=== PATIENT | male | born 1960 | race Caucasian/White ===

== ENCOUNTER → 2023-10-24 | Outpatient (CLI) | payer MEDICARE ==
--- NOTE | 2023-10-24 17:47 | CA ---
Exercise Stress Test Report Name: Mane Nascimento Exam Date: 10/24/2023 08:50 Exam Location: [facility] Ht (in): 66 Wt (lb): 137 BSA: 1.70 Ordering Phys: Catalino Griffin MD Referring Phys: Catalino Griffin MD Technologist: CORTNEY CAUSEY Age: 62 Gender: M : 1960 Procedure CPT: Indications: R06.02 SOB Z84.29 FAM HX MO ICD-10 Codes: Patient History: DIFFICULTY IN BREATHING, PALPITATIONS, FAMILY HX OF HEART DISEASE, CURRENT SMOKER Medications: NONE Meds past 24 hrs: Pretest Chest Pain: STRESS TEST Semaj Protocol Exercise Duration (min:sec): 09:[address] Depressions (mm): Angina Score: Hubbard Score: Resting HR (bpm): 84 Peak HR (bpm): 134 Resting BP (mmHg): 147 / 87 Peak BP (mmHg): 178 / 67 MPHR: 157 Target HR: 133 % MPHR: 85 METS: 9.7 Total Dose: Peak Dose: Atropine: Double Product: 33023 BP Response: Stress Termination: MAX EXERTION/TARGET HR Stress Symptoms: NO SYMPTOMS Stress Summary: ECG ANALYSIS Resting ECG: Stress ECG: CONCLUSIONS Excellent exercise tolerance Normal electrocardiogram stress testing Dr. Jelani Bush MD (Electronically Signed) Final Date: 24 October 2023 17:46
== END | disposition home or self-care (01) ==
LOC: RADNMMAIN 08:20
PROVIDERS: ATTEND Family Medicine
DX: R06.02 Shortness of breath (principal); R06.2 Wheezing
CPT/HCPCS: 93017; 93225; 93226

== ENCOUNTER → 2023-11-21 | Outpatient (CLI) | payer MEDICARE ==
--- NOTE | 2023-11-21 13:16 | CTL ---
EXAMINATION TYPE: CT Low Dose Lung DATE OF EXAM ORDERED: 11/21/2023 HISTORY: . Low Dose CT Lung Screening CT DLP: [address] CTDI: 1.76 mGy IV CONTRAST USED: None. SCREENING VISIT: First visit COMPARISON: None. TECHNIQUE: Low dose computed tomography scan was performed through the chest at 1 millimeter thick se ctions and reconstructed images in the coronal plane at [address] DIAGNOSTIC QUALITY: Satisfactory FINDINGS: LUNG NODULES: Not presentLeft lung: no nodules identified.Right lung: no nodules identified. LUNGS: COPD: Severity: Mild Fibrosis: Severity:None Lymph nodes: None Other findings: None RIGHT PLEURAL SPACE: Effusion: None Calcification: None Thickening: None Pneumothorax: None LEFT PLEURAL SPACE: Effusion: None Calcification: None Thickening: None Pneumothorax: None HEART: Heart Size: Mildly enlarged Coronary calcification: Mild Pericardial effusion: None OTHER FINDINGS: Upper abdomen: No significant abnormality Bony thorax: Degenerative changes Supraclavicular region: No significant abnormalityOther: No significant abnormalityI IMPRESSION: No pulmonary nodularity greater than [address] CHEST RECOMMENDATION: Follow-up screening in one year CT LUNG RAD: LUNG RAD CATEGORY 1 negative
== END | disposition home or self-care (01) ==
LOC: RADCTMAIN 08:08
PROVIDERS: ATTEND Family Medicine
DX: Z12.2 Encounter for screening for malignant neoplasm of respiratory organs (principal); F17.210 Nicotine dependence, cigarettes, uncomplicated
CPT/HCPCS: 71271

== ENCOUNTER → 2024-02-16 | Day surgery (SDC) | payer MEDICARE ==
[~2024-02-16] MED LIST: ALPRAZolam 0.25 MG TAB PO PRN; ALPRAZolam 0.5 MG TAB PO PRN; ASPIRIN 325 MG TAB PO ONE; HEPARIN SODIUM 1,000 UN/ML (10ML VL) ONE; HEPARIN SODIUM,PORCINE 30 ML 30 ML ONE; LIDOCAINE 1% INJ 10MG/ML (20 ML MDV) ONE; NITROGLYCERIN SL TABS 0.4 MG TAB SUBLINGUAL PRN; RX INFO: IV CONTRAST WAS GIVEN 1 EACH MISC MISCELLANE PRN; VERAPAMIL 2.5 MG/ML 2 ML AMP ONE; fentaNYL (PF) 50 MCG/ML 2 ML AMP ONE
[2024-02-16] MEDS: IV FLUID CONTINUATION 1,000 ML IV ONE (07:30)
[2024-02-16] MEDS: SODIUM CHLORIDE 0.9% 1,000 ML in EMPTY BAG 1 BAG IV SCH (07:30)
[2024-02-16 07:44] VITALS: TEMP 98.1
[2024-02-16 07:53] LABS: Basophils # (A) 0.1 k/uL (0-0.2); Basophils % (A) 1 %; Eosinophils # (A) 0.2 k/uL (0-0.7); Eosinophils % (A) 2 %; HCT 43.8 % (39.0-53.0); HGB 13.3 gm/dL (13.0-17.5); Lymphocytes # (A) 2.4 k/uL (1.0-4.8); Lymphocytes % (A) 27 %; MCH 30.5 pg (25.0-35.0); MCHC 30.4 g/dL (31.0-37.0); MCV 100.4 fL (80.0-100.0); Macrocytosis Slight; Mean Platelet Volume 7.9; Monocytes # (A) 0.6 k/uL (0-1.0); Monocytes % (A) 7 %; Neutrophils # (A) 5.4 k/uL (1.3-7.7); Neutrophils % (A) 60 %; Platelet Count 318 k/uL (150-450); RBC 4.37 m/uL (4.30-5.90); RDW 14.3 % (11.5-15.5)
[2024-02-16 08:08] LABS: African American GFR (CKD) >90 (>60 ml/min/1.73 sqM); Anion Gap 6 mmol/L; Blood Urea Nitrogen 22 mg/dL (9-20); Calcium 9.4 mg/dL (8.4-10.2); Carbon Dioxide 25 mmol/L (22-30); Chloride 107 mmol/L (98-107); Glucose 97 mg/dL (74-99); Non-African American GFR(CKD) >90 (>60 ml/min/1.73 sqM); Potassium 5.1 mmol/L (3.5-5.1); Sodium 138 mmol/L (137-145)
[2024-02-16] MEDS: fentaNYL (PF) 50 MCG/ML 2 ML AMP IVP ONE (09:20)
[2024-02-16] MEDS: MIDAZOLAM 2 MG/2 ML VIAL IVP ONE (09:20)
[2024-02-16] MEDS: LIDOCAINE 1% INJ 10MG/ML (20 ML MDV) SQ ONE (09:21)
[2024-02-16] MEDS: VERAPAMIL 2.5 MG/ML 4 ML VIAL INTRAARTER ONE (09:23)
[2024-02-16] MEDS: HEPARIN SODIUM 1,000 UN/ML (10ML VL) IV ONE (09:25)
[2024-02-16] MEDS: IOPAMIDOL-370 100ML BTL INJ ONE (09:33)
--- NOTE | 2024-02-16 10:06 | LTR ---
Dear Kaylee: I performed cardiac catheterization on Mane Nascimento. A detailed catheterization note is enclosed for your records. In brief, cardiac catheterization was done because of cardiomyopathy noted on a stress test and I am happy to report you that patient does not need coronary revascularization at this time. He has mild nonobstructive disease and his management is going to be in the form of risk factor modification and optimal medical therapy. Thank you for allowing me to participate in the care of this pleasant gentleman. DEMETRIUS / LEESA: [id number] /
--- NOTE | 2024-02-16 10:06 | CC ---
CARDIAC CATHETERIZATION REPORT INDICATION: Abnormal stress test showing ischemic cardiomyopathy. PROCEDURE NOTE: After obtaining informed consent, left heart catheterization and coronary angiogram were performed via the right radial artery using standard Homer catheters. The patient tolerated the procedure well without any obvious immediate complications. A TR band was used for hemostasis. The patient received moderate conscious sedation. Total sedation time was 17 minutes. Right radial artery access was obtained using Seldinger technique. A 6-Vietnamese sheath was placed. Catheters and wires were floated into the ascending aorta under fluoroscopic guidance. FINDINGS: 1. Hemodynamics: Left ventricular end-diastolic pressure is 8 to 10 mm. There is no significant gradient across the aortic valve. 2. Left ventriculogram: Left ventriculogram is not performed. 3. Angiographic data: a.Right coronary artery: Right coronary artery is a large dominant vessel that appears calcified and shows mild to moderate nonobstructive plaque in its midportion. b.Left main coronary artery appears mildly calcified but is free of significant stenosis, divides into left anterior descending coronary artery and circumflex coronary artery. Circumflex coronary artery shows mild disease involving the AV groove circ. LAD shows mild nonobstructive disease. CONCLUSION: Mild nonobstructive coronary artery disease involving the left coronary artery and mild to moderate disease involving mid RCA. PLAN: I reviewed angiographic data with the patient and told him that his management is going to be in the form of risk factor modification and optimal medical therapy. Blood pressure tolerating, I will add an CRYSTAL inhibitor and a beta mariza down the road. At the moment, he is on aspirin and a statin. MMODL / IJN: [id number] /
[2024-02-16 16:17] VITALS: BP 115/60; PULSE 70; RESP 16
== END ==
LOC: CATHCVL 07:07
PROVIDERS: ATTEND Internal Medicine Cardiovascular Disease
DX: I25.5 Ischemic cardiomyopathy (principal); I25.10 Atherosclerotic heart disease of native coronary artery without angina pectoris
CPT/HCPCS: 93458; 80048; 85025; C1769; J2250; J2001; J3010; J1644; Q9967

== ENCOUNTER → 2024-11-19 | Outpatient (CLI) | payer MEDICARE ==
--- NOTE | 2024-11-19 12:03 | CT ---
EXAMINATION TYPE: CT chest wo con DATE OF EXAM: 11/19/2024 11:14 AM COMPARISON: CT chest 11/21/2023 CLINICAL INDICATION: Male, 64 years old with history of R91.8 abnormal exam of lung field; R22.2; PHH , HX OF HTN, SMOKER X 50 YEARS, PT SMOKES 1 PK/DAY TECHNIQUE: Multiple axial images were obtained through the chest. Sagittal and coronal reformats were created for review. MIP was performed on a separate workstation. Contrast used: mL of (None if empty) Oral contrast used: (None if empty) CT DLP: 358 mGycm, Automated exposure control for dose reduction was used. FINDINGS: LUNGS/ PLEURA: No focal consolidation, pneumothorax or pleural effusion. Stable left lower lobe later al 3 mm nodule series 3 image 47. Stable left lower lobe 3 mm nodule image 38. Stable medial intrafis sural lymph node image 19. Mild centrilobular emphysema changes. AIRWAY: Patent and unremarkable. HEART: Size within normal limits. Mild coronary artery calcifications present. MEDIASTINUM: No gross evidence of adenopathy. VASCULATURE: No aortic aneurysm. MUSCULOSKELETAL: Mild disc degeneration changes are present throughout the thoracolumbar spine second palmira to osteophyte formation and facet joint arthropathy. SOFT TISSUES/LYMPH NODES: Unremarkable. LOWER NECK: No significant findings. UPPER ABDOMEN: Bilateral indeterminate probable simple appearing renal cysts. On the left measuring u p to 27 mm on the right measuring up to 9 mm. No follow-up for these lesions. IMPRESSION: No evidence for acute process. No new or enlarging pulmonary nodules. Stable sub-5 mm nodules. Continued yearly low-dose lung cancer screening. Mild emphysema. Follow up recommendations for incidental pulmonary nodules, if there are any, are per Fleischner?s A [employer] or [employer] [employer]. https://radiopaedia.org/articles/lqmplyupuh-msocszf-[email or web address]-qhnggu-[email or web address]-[email or web address]?lang=us [facility], , 11/19/2024 12:01 PM
== END | disposition home or self-care (01) ==
LOC: RADCTMAIN 10:48
PROVIDERS: ATTEND Family Medicine
DX: R91.8 Other nonspecific abnormal finding of lung field (principal); J43.2 Centrilobular emphysema
CPT/HCPCS: 71250